=== PATIENT | male | born 1995 | race African-American/Black ===

== ENCOUNTER 2022-12-27 14:49 | Inpatient (IN) | payer OTHER ==
[2022-12-27 18:14] VITALS: BMI 25.4
[2022-12-27] MEDS ORDERED: NICOTINE 10 MG CARTRIDGE (INHALER) IH PRN (19:49)
[2022-12-27] MEDS ORDERED: MAGNESIUM HYDROX 2400MG/30ML ORAL SUSPENSION 30 ML CUP PO PRN (19:49)
[2022-12-27] MEDS ORDERED: LOPERAMIDE HCL 2 MG CAPSULE PO PRN (19:49)
[2022-12-27] MEDS ORDERED: IBUPROFEN 400 MG TABLET (FP) PO PRN (19:49)
[2022-12-27] MEDS ORDERED: NALOXONE HCL (KLOXXADO) 8 MG SPRAY NS PRN (19:49)
[2022-12-27] MEDS ORDERED: NALOXONE HCL 0.4 MG/ML VIAL IM PRN (19:49)
[2022-12-27] MEDS ORDERED: MAG HYDROX/AL HYDROX/SIMETH 30 ML UNIT-DOSE CUP PO PRN (19:49)
[2022-12-27] MEDS ORDERED: ACETAMINOPHEN 325 MG TABLET (FP) PO PRN (19:49)
[2022-12-27] MEDS ORDERED: BISMUTH SUBSALICYLATE 524 MG/30 ML PO PRN (19:49)
[2022-12-27] MEDS ORDERED: POLYETHYLENE GLYCOL (HEALTHYLAX) 3350 17 GM PACKET PO PRN (19:49)
[2022-12-27] MEDS ORDERED: IBUPROFEN 600 MG TABLET (FP) PO PRN (19:49)
[2022-12-27] MEDS ORDERED: ONDANSETRON *ODT* 4 MG TABLET SL PRN (19:49)
[2022-12-27] MEDS ORDERED: BENZONATATE 200 MG CAPSULE PO PRN (19:49)
[2022-12-27] MEDS ORDERED: BENZOCAINE/MENTHOL (CHLORASEPTIC ) LOZENGE MM PRN (19:49)
[2022-12-27] MEDS ORDERED: DICYCLOMINE HCL 10 MG CAPSULE PO PRN (19:49)
[2022-12-27] MEDS ORDERED: guaiFENesin 600 MG TABLET.ER (FP) PO PRN (19:49)
[2022-12-27] MEDS: METHOCARBAMOL 500 MG TABLET PO PRN (21:21)
[2022-12-27] MEDS: THIAMINE HCL 100 MG TABLET (FP) PO SCH (22:34)
[2022-12-27] MEDS: MELATONIN 5 MG TABLETS PO SCH (22:34)
[2022-12-27] MEDS: hydrOXYzine PAMOATE 25 MG CAPSULE (FP) PO PRN (22:35)
[2022-12-28] MEDS ORDERED: ALBUTEROL SO4 HFA INHALER IH PRN (09:19)
[2022-12-28] MEDS ORDERED: chlordiazePOXIDE HCL 25 MG CAPSULE PO PRN (09:19)
[2022-12-28] MEDS: hydrOXYzine PAMOATE 25 MG CAPSULE (FP) PO PRN ×2 (10:15→19:53)
[2022-12-28] MEDS: METHOCARBAMOL 500 MG TABLET PO PRN ×2 (10:15→19:53)
[2022-12-28] MEDS: PRENATAL VITAMINS W/ FOLIC ACID TABLET (FP) PO SCH (10:15)
[2022-12-28] MEDS: chlordiazePOXIDE HCL 25 MG CAPSULE PO SCH ×3 (10:15→22:14)
[2022-12-28] MEDS: NICOTINE 21 MG/24 HOURS TOPICAL PATCH TD SCH (10:15)
[2022-12-28 11:34] LABS: HEMATOCRIT 38.6 % (35.4-49); HEMOGLOBIN 13.2 GM/dL (11.7-16.9); MCH 32.5 pg (25.7-33.7); MCHC 34.2 g/dl (32.0-35.9); MEAN CELL VOLUME 95.1 fl (80-96); PLATELET COUNT 324 10^3/uL (134-434); RBC 4.06 M/mm3 (4.00-5.60); RDW 12.8 % (11.9-15.9); WHITE BLOOD COUNT 6.5 K/mm3 (4.0-10.0)
[2022-12-28 11:41] LABS: CALCIUM 9.4 mg/dL (8.5-10.1)
[2022-12-28 11:42] LABS: BLOOD UREA NITROGEN 18.1 mg/dL (7-18)
[2022-12-28 11:46] LABS: BILIRUBIN,TOTAL 1.1 mg/dL (0.2-1)
[2022-12-28 11:47] LABS: TOT PROT 7.9 g/dl (6.4-8.2)
[2022-12-28] MEDS: MELATONIN 5 MG TABLETS PO SCH (22:13)
[2022-12-28] MEDS: THIAMINE HCL 100 MG TABLET (FP) PO SCH (22:13)
[2022-12-29] MEDS: hydrOXYzine PAMOATE 25 MG CAPSULE (FP) PO PRN (04:27)
[2022-12-29] MEDS: chlordiazePOXIDE HCL 25 MG CAPSULE PO SCH ×4 (04:27→22:05)
[2022-12-29] MEDS: hydrOXYzine PAMOATE 50 MG CAPSULE (FP) PO PRN ×2 (11:11→19:15)
[2022-12-29] MEDS: METHOCARBAMOL 500 MG TABLET PO PRN ×2 (11:12→22:05)
[2022-12-29] MEDS: NICOTINE 21 MG/24 HOURS TOPICAL PATCH TD SCH (11:12)
[2022-12-29] MEDS: PRENATAL VITAMINS W/ FOLIC ACID TABLET (FP) PO SCH (11:12)
[2022-12-29] MEDS: SUVOREXANT 10 MG TABLET PO PRN (22:05)
[2022-12-29] MEDS: THIAMINE HCL 100 MG TABLET (FP) PO SCH (22:05)
[2022-12-30] MEDS: hydrOXYzine PAMOATE 50 MG CAPSULE (FP) PO PRN ×3 (03:31→17:37)
[2022-12-30] MEDS: chlordiazePOXIDE HCL 25 MG CAPSULE PO SCH ×4 (05:31→22:04)
[2022-12-30] MEDS: METHOCARBAMOL 500 MG TABLET PO PRN ×2 (05:33→22:04)
[2022-12-30] MEDS: PRENATAL VITAMINS W/ FOLIC ACID TABLET (FP) PO SCH (10:08)
[2022-12-30] MEDS: NICOTINE 21 MG/24 HOURS TOPICAL PATCH TD SCH (10:09)
[2022-12-30] MEDS: SUVOREXANT 10 MG TABLET PO PRN (22:03)
[2022-12-30] MEDS: THIAMINE HCL 100 MG TABLET (FP) PO SCH (22:04)
[2022-12-31] MEDS ORDERED: chlordiazePOXIDE HCL 10 MG CAPSULE PO PRN
[2022-12-31] MEDS: hydrOXYzine PAMOATE 50 MG CAPSULE (FP) PO PRN ×3 (02:44→22:19)
[2022-12-31] MEDS: chlordiazePOXIDE HCL 10 MG CAPSULE PO SCH ×4 (05:07→22:20)
[2022-12-31] MEDS: NICOTINE 21 MG/24 HOURS TOPICAL PATCH TD SCH (10:24)
[2022-12-31] MEDS: PRENATAL VITAMINS W/ FOLIC ACID TABLET (FP) PO SCH (10:24)
[2022-12-31] MEDS: METHOCARBAMOL 500 MG TABLET PO PRN ×2 (10:25→22:19)
[2022-12-31] MEDS ORDERED: SUVOREXANT 10 MG TABLET PO PRN (16:56)
[2022-12-31] MEDS ORDERED: SUVOREXANT 15 MG TABLET PO PRN (22:00)
[2022-12-31] MEDS: THIAMINE HCL 100 MG TABLET (FP) PO SCH (22:19)
[2023-01-01] MEDS: chlordiazePOXIDE HCL 10 MG CAPSULE PO SCH ×2 (05:20→17:30)
[2023-01-01] MEDS: PRENATAL VITAMINS W/ FOLIC ACID TABLET (FP) PO SCH (10:20)
[2023-01-01] MEDS: NICOTINE 21 MG/24 HOURS TOPICAL PATCH TD SCH (10:21)
[2023-01-01] MEDS: METHOCARBAMOL 500 MG TABLET PO PRN ×2 (10:22→23:38)
[2023-01-01] MEDS: hydrOXYzine PAMOATE 50 MG CAPSULE (FP) PO PRN ×2 (10:23→22:36)
[2023-01-01] MEDS: THIAMINE HCL 100 MG TABLET (FP) PO SCH (22:35)
[2023-01-02] MEDS ORDERED: chlordiazePOXIDE HCL 10 MG CAPSULE PO ONE (05:00)
[2023-01-02 09:12] VITALS: BP 137/79; PULSE 74; RESP 18; TEMP 97.1
[2023-01-02] MEDS: PRENATAL VITAMINS W/ FOLIC ACID TABLET (FP) PO SCH (11:02)
[2023-01-02] MEDS: NICOTINE 21 MG/24 HOURS TOPICAL PATCH TD SCH (11:02)
== END 2023-01-02 09:57 | disposition home or self-care (01) | DRG 774 ==
LOC: YASAS 14:49 → Y6N 20:33 → UNDOADMIN 20:33
PROVIDERS: ADMIT Allergy & Immunology; ATTEND Surgery
PROC: HZ2ZZZZ Detoxification Services for Substance Abuse Treatment (ICD-10-PCS; principal; 2022-12-27)
DX: F10.230 Alcohol dependence with withdrawal, uncomplicated (principal); F14.20 Cocaine dependence, uncomplicated; F12.20 Cannabis dependence, uncomplicated; F17.210 Nicotine dependence, cigarettes, uncomplicated; F19.282 Other psychoactive substance dependence with psychoactive substance-induced sleep disorder; F19.280 Other psychoactive substance dependence with psychoactive substance-induced anxiety disorder; F19.24 Other psychoactive substance dependence with psychoactive substance-induced mood disorder; F31.9 Bipolar disorder, unspecified; F41.9 Anxiety disorder, unspecified; G47.00 Insomnia, unspecified; J45.909 Unspecified asthma, uncomplicated
CPT/HCPCS: 36415; 80053; 83036; 85027; 86593; 86780; 93005; 93010; C9803-CS; U0003; U0005